=== PATIENT | female | born 1955 | race Caucasian/White ===

== ENCOUNTER 2016-11-05 07:49 | Emergency (ER) | payer SELFPAY ==
[2016-11-05 08:09] VITALS: BP 156/77
[2016-11-05] MEDS ORDERED: Ibuprofen TAB* 400 MG PO ONE (09:09)
--- NOTE | 2016-11-05 09:33 | RAD ---
HISTORY: Fall, left knee pain COMPARISONS: None VIEWS: 4, Frontal, lateral, axial, and oblique views of the left knee FINDINGS: BONE DENSITY: There is diffuse osteopenia. BONES: There is no displaced fracture. 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 There is no suprapatellar joint effusion or lipohemarthrosis. ALIGNMENT: There is no dislocation. SOFT TISSUES: Unremarkable. OTHER FINDINGS: None. IMPRESSION: OSTEOPENIA. OSTEOARTHRITIS. NO ACUTE OSSEOUS INJURY. IF SYMPTOMS PERSIST, RECOMMEND REPEAT IMAGING.
--- NOTE | 2016-11-05 09:34 | RAD ---
HISTORY: Fall, right hip pain COMPARISONS: None VIEWS: 3, Frontal view of the pelvis with frontal and frog-leg views of the right hip FINDINGS: BONE DENSITY: Normal. BONES: There is no displaced fracture. JOINTS: There is mild osteoarthritis of the hips and SI joints bilaterally. ALIGNMENT: There is no dislocation. SOFT TISSUES: Unremarkable. OTHER FINDINGS: None. IMPRESSION: NO RADIOGRAPHIC EVIDENCE FOR HIP FRACTURE. X-RAYS MAY BE NEGATIVE WITH NONDISPLACED HIP FRACTURE, IF THERE IS PERSISTENT CLINICAL CONCERN, RECOMMEND CONSIDERATION OF MRI. IN THE SETTING OF CONTRAINDICATION TO MRI OR LIMITATION IN EMERGENT ACCESS TO MRI, CT WOULD BE SUGGESTED.
--- NOTE | 2016-11-05 10:37 | UC ---
Lower Extremity/Ankle HPI - HPI Summary HPI Summary: fell on ice at [facility] urgent care this am, injuring her right hip and left knee. Able to bear weight. States she feels like it is "just bruised". - History of Current Complaint Chief Complaint: UCLowerExtremity Stated Complaint: S/P FALL RIGHT HIP/KNEES Time Seen by Provider: 11/05/16 08:34 Hx Obtained From: Patient Hx Last Menstrual Period: 30yrs Onset/Duration: Sudden Onset, Lasting Hours, Still Present Pain Intensity: 5 Pain Scale Used: 0-10 Numeric Aggravating Factor(s): Nothing Alleviating Factor(s): Nothing Able to Bear Weight: Yes - Risk Factors Gout Risk Factors: Diabetes DVT Risk Factors: Negative Septic Arthritis Risk Factor: Negative - Allergies/Home Medications Allergies/Adverse Reactions: Allergies Allergy/AdvReac Type Severity Reaction Status Date / Time Fish Oil Allergy Severe tongue Verified 11/05/16 08:09 swells Lorazepam [From Ativan] AdvReac Severe confusion Verified 11/05/16 08:09 Home Medications: Home Medications Insulin 70/30 40 units SUBCUT BID 11/05/16 [History Confirmed 11/05/16] Insulin Aspart [Novolog] 100 unit SC BID 11/05/16 [History Confirmed 11/05/16] oxyCODONE/Acetamin 5/325 MG* [Percocet 5/325 TAB*] 1 - 2 tab PO Q6H PRN [History Confirmed 11/05/16] PMH/Surg Hx/FS Hx/Imm Hx Endocrine History Of: Reports: Diabetes - insulin Denies: Thyroid Disease, Hyperthyroidism, Hypothyroidism Cardiovascular History Of: Reports: Cardiac Disorders - CAD, Hypertension Respiratory History Of: Reports: COPD GI/ History Of: Reports: Kidney Stones Denies: Ulcer Neurological History Of: Reports: TIA, CVA - 2010 Psychological History Of: Reports: Depression - PTS IN 2004 Cancer History Of: Denies: Breast Cancer Other History Of: Anticoagulant Therapy - PLAVIX R/T CVA - Surgical History Surgical History: Yes Surgery Procedure, Year, and Place: CARDIAC CATH 2010 IN [place], NO STENTS PLACED. PARTIAL HYSTERECTOMY - Family History Known Family History: Positive: Cardiac Disease - Social History Lives: With Family Alcohol Use: None Substance Use Type: None Smoking Status (MU): Never Smoked Tobacco - Immunization History Most Recent Influenza Vaccination: 2011 Most Recent Tetanus Shot: UNKNOWN Review of Systems Constitutional: Negative Skin: Bruising - left knee Motor: Other - pain with ambulation Neurovascular: Negative Musculoskeletal: Arthralgia - left knee, right hip, Myalgia Neurological: Negative Psychological: Negative All Other Systems Reviewed And Are Negative: Yes Physical Exam Triage Information Reviewed: Yes Appearance: Well-Appearing, Well-Nourished, Pain Distress Vital Signs: Initial Vital Signs Temp 98 F 11/05/16 08:00 Pulse 82 11/05/16 08:00 Resp 18 11/05/16 08:00 BP 156/77 11/05/16 08:00 mild elevation in BP noted Vital Signs Reviewed: Yes Eyes: Positive: Conjunctiva Clear ENT: Positive: Normal ENT inspection Neck: Positive: Supple, Nontender Respiratory: Positive: Chest non-tender, Lungs clear, Normal breath sounds, No respiratory distress Cardiovascular: Positive: RRR, No Murmur, Pulses Normal, Brisk Capillary Refill Musculoskeletal: Positive: Strength Intact, ROM Intact, Other: - point tenderness right lateral hip at greater trochanter, no ecchymosis; pain with movement left knee, swelling, no effusion, no bony tenderness, abrasion on patella, 2 cm purple ecchymosis medial left knee. Ligaments stable. left ankle nontender, no swelling. Neurological: Positive: Alert, Muscle Tone Normal Psychological Exam: Normal Skin: Positive: Other - bruise left knee Lower Extremity Course/Dx - Course Course Of Treatment: xray left knee and right hip: no acute fracture noted per Dr. Valentine - Differential Dx/Diagnosis Differential Diagnosis/HQI/PQRI: Contusion, Fracture (Closed), Sprain, Strain Provider Diagnoses: contusion right hip S/P fall from standing position. sprain and contusion left knee s/p fall from standing position. Blood pressure in poor control Discharge - Discharge Plan Condition: Stable Disposition: HOME Patient Education Materials: Knee Sprain (ED), Hip Contusion (ED) Referrals: Duy Fall MD [Medical Doctor] - GIRMA Staton [Primary Care Provider] - 7 Days (regarding elevated blood pressure)
== END 2016-11-05 10:19 | disposition home or self-care (01) ==
LOC: UCCORT 07:49
DX: S70.01XA Contusion of right hip, initial encounter (principal); S80.02XA Contusion of left knee, initial encounter; S83.92XA Sprain of unspecified site of left knee, initial encounter; W00.0XXA Fall on same level due to ice and snow, initial encounter; Y93.9 Activity, unspecified; Y92.532 Urgent care center as the place of occurrence of the external cause; Z88.8 Allergy status to other drugs, medicaments and biological substances; E11.9 Type 2 diabetes mellitus without complications; Z79.4 Long term (current) use of insulin; I25.10 Atherosclerotic heart disease of native coronary artery without angina pectoris; I10 Essential (primary) hypertension; Z86.73 Personal history of transient ischemic attack (TIA), and cerebral infarction without residual deficits; Z79.01 Long term (current) use of anticoagulants
CPT/HCPCS: 81003; 87077; 87086; 87186; 99212; A9270-GY; G0463